=== PATIENT | male | born 1945 | race Caucasian/White ===

== ENCOUNTER 2023-02-27 10:14 | Emergency (ER) | payer MEDICARE, BC ==
[2023-02-27 10:45] LABS: BASOPHILS ABSOLUTE AUTO 0.14 K/uL (0.00-0.20); BASOPHILS PERCENT AUTO 1.3 % (0.0-2.0); EOSINOPHILS ABSOLUTE AUTO 0.06 K/uL (0.00-0.50); EOSINOPHILS PERCENT AUTO 0.6 % (0.0-5.0); HEMATOCRIT 44.9 % (39.0-49.0); LYMPHOCYTES PERCENT AUTO 19.6 % (10.0-50.0); MEAN CORPUSCULAR HEMOGLOBIN 30.7 pg (28.2-33.3); MEAN CORPUSCULAR HGB CONC 33.4 g/dL (31.7-36.0); MEAN CORPUSCULAR VOLUME 91.8 fL (84.0-98.0); MONOCYTES ABSOLUTE AUTO 1.23 K/uL (0.00-1.00); MONOCYTES PERCENT AUTO 11.5 % (2.0-14.0); PLATELET COUNT,PLT 355 K/uL (150-350); RED BLOOD CELL COUNT 4.89 M/uL (4.33-5.41); RED CELL DISTRIBUTION WIDTH 15.6 % (11.2-14.1); WHITE BLOOD CELL COUNT,WBC 10.7 K/uL (4.0-10.2)
[2023-02-27 11:01] LABS: ALANINE AMINOTRANSFERASE,ALT 37 U/L (12-78); ALBUMIN 3.8 g/dL (3.4-5.0); ALKALINE PHOSPHATASE 91 IU/L (46-116); ANION GAP 11.4 meq/L (7-15); ASPARTATE AMNIOTRANSFERASE,AST 24 U/L (15-37); BILIRUBIN TOTAL 0.7 mg/dL (0.2-1.0); BLOOD UREA NITROGEN,BUN 17 mg/dL (7-18); CARBON DIOXIDE,CO2 30.8 mmol/L (21.0-32.0); CHLORIDE,CL 98 mmol/L (98-107); CREATININE 1.53 mg/dL (0.51-1.17); ESTIMATED GFR 47 mL/min (>=60); GLUCOSE RANDOM 123 mg/dL (70-99); POTASSIUM,K 3.2 mmol/L (3.5-5.1); SODIUM,NA 137 mmol/L (136-145)
[2023-02-27 16:38] VITALS: BP 147/83; PULSE 91
== END 2023-02-27 14:10 ==
LOC: LL.ED 10:14
DX: I62.00 Nontraumatic subdural hemorrhage, unspecified (principal); E78.00 Pure hypercholesterolemia, unspecified; I10 Essential (primary) hypertension; Z79.01 Long term (current) use of anticoagulants; Z88.0 Allergy status to penicillin; Z79.899 Other long term (current) drug therapy
CPT/HCPCS: 36415; 70450; 80053; 85025; 99285